=== PATIENT | male | born 2000 | race Caucasian/White ===

== ENCOUNTER 2023-08-22 08:00 | Emergency (ER) | payer MEDICAID ==
[~2023-08-22] VITALS: Ht 167.6 cm; Wt 66.0 kg
[2023-08-22 08:07] VITALS: O2SAT 98
[2023-08-22] MEDS: BACITRACIN ZINC OINT UDPKT TOP ONE (09:00)
[2023-08-22] MEDS: TETANUS, DIPHTHERIA, PERTUSSIS VAC/PF 0.5ML (>10YR OLD) IM ONE (09:09)
[2023-08-22] MEDS ORDERED: CEPH500C2 MT (09:10)
[2023-08-22 09:28] VITALS: BP 124/74; PULSE 69; RESP 18; TEMP 98.2
== END 2023-08-22 09:43 | disposition home or self-care (01) ==
LOC: ER 08:00
DX: S51.811A Laceration without foreign body of right forearm, initial encounter (principal); W31.9XXA Contact with unspecified machinery, initial encounter; Y93.89 Activity, other specified; Y92.89 Other specified places as the place of occurrence of the external cause; Y99.8 Other external cause status
CPT/HCPCS: 90715; 12002; 90471; 99283; Z7610 ×3

== ENCOUNTER 2023-08-27 16:14 | Emergency (ER) | payer MEDICAID ==
[~2023-08-27] VITALS: Ht 172.7 cm; Wt 66.0 kg
[~2023-08-27 16:14] MED LIST: CEPH500C2 MT
[2023-08-27 16:35] VITALS: O2SAT 99
[2023-08-27 16:57] VITALS: BP 117/69; PULSE 69; RESP 18; TEMP 98.1
== END 2023-08-27 19:26 | disposition home or self-care (01) ==
LOC: ER 16:14
DX: S51.811D Laceration without foreign body of right forearm, subsequent encounter (principal); X58.XXXD Exposure to other specified factors, subsequent encounter
CPT/HCPCS: 99281

== ENCOUNTER 2023-08-30 18:32 | Emergency (ER) | payer MEDICAID ==
[~2023-08-30] VITALS: Ht 167.6 cm; Wt 74.0 kg
[2023-08-30 18:39] VITALS: O2SAT 99
[2023-08-30 19:57] VITALS: BP 118/72; PULSE 50; RESP 14; TEMP 98.3
== END 2023-08-30 20:02 | disposition home or self-care (01) ==
LOC: ER 18:32
DX: S51.811D Laceration without foreign body of right forearm, subsequent encounter (principal); Z48.02 Encounter for removal of sutures; X58.XXXD Exposure to other specified factors, subsequent encounter
CPT/HCPCS: 99281; Z7610